=== PATIENT | female | born 1985 | race Caucasian/White ===

== ENCOUNTER 2016-09-19 22:56 | Emergency (ER) | payer MEDICAID ==
[~2016-09-19] VITALS: Ht 160 cm; Wt 72.2 kg
[~2016-09-19 22:56] MED LIST: CEPH-443 PO; HYDR-3498 PO; IBUP-1542 PO; NITR-58 PO
[2016-09-19 23:04] VITALS: Ht 160 cm; Wt 72.2 kg
--- NOTE | 2016-09-20 01:29 | ERD ---
ER Documentation Chief Complaint Date/Time DATE: 09/20/16 TIME: 01:25 Chief Complaint VAGINAL BUMPS NOTED IN THE PERINEAL AREA HPI 31-year-old female presents here in emergency department for complaints of bumps in the perineal area that she noticed tonight. Patient denies any pain. Patient denies dysuria. Patient denies any abdominal pain. Patient is approximately 28 weeks , 7 months . Patient denies any vaginal bleeding, denies any discharge from the vaginal area. Patient denies any fever or chills. Patient denies any nausea or vomiting. Patient denies any fever or chills. ROS All systems reviewed and are negative except as per history of present illness. Medications Home Meds Active Scripts Nitrofurantoin Monohyd Macrocr* (Macrobid*) 100 Mg Capsr, 100 MG PO BID for 7 Days, CAP Prov:ANTONINO NEVAREZ PA-C 04/20/16 Ibuprofen* (Motrin*) 600 Mg Tab, 600 MG PO Q6, #30 TAB Prov:ANTONINO NEVAREZ PA-C 10/30/15 Hydrocodone Bit-Acetaminophen* ([place]*) 5-325 Mg Tab, 1 TAB PO Q6 Y for PAIN, # 7 TAB Prov:ANTONINO NEVAREZ PA-C 10/30/15 Cephalexin* (Keflex*) 500 Mg Capsule, 500 MG PO QID for 7 Days, CAP Prov:ANTONINO NEVAREZ PA-C 10/30/15 Allergies Allergies: Coded Allergies: No Known Allergy (Unverified , 09/19/16) PMhx/Soc Medical and Surgical Hx: pt denies Medical Hx, pt denies Surgical Hx History of Surgery: No Anesthesia Reaction: No Hx Neurological Disorder: No Hx Respiratory Disorders: No Hx Cardiac Disorders: No Hx Psychiatric Problems: No Hx Miscellaneous Medical Probl: No Hx Alcohol Use: No Hx Substance Use: No Hx Tobacco Use: No Smoking Status: Never smoker FmHx Family History: No coronary disease, No diabetes, No other Physical Exam Vitals Vital Signs Date Time Temp Pulse Resp B/P Pulse Ox O2 Delivery O2 Flow Rate FiO2 09/19/16 23:04 97.0 80 20 113/73 97 Physical Exam GENERAL: The patient is well developed and appropriate for usual state of health, in no apparent distress. CHEST: Clear to auscultation bilaterally. There are no rales, wheezes or rhonchi. HEART: Regular rate and rhythm. No murmurs, clicks, rubs or gallops. No S3 or S4. ABDOMEN: Soft, nontender and nondistended. Good bowel sounds. No rebound or guarding. No gross peritonitis. No gross organomegaly or masses. No Bernal sign or McBurney point tenderness. BACK: No midline or flank tenderness. EXTREMITIES: Equal pulses bilaterally. There is no peripheral clubbing, cyanosis or edema. No focal swelling or erythema. Full range of motion. Grossly neurovascularly intact. NEURO: Alert and oriented. Cranial nerves 2-12 intact. Motor strength in all 4 extremities with 5/5 strength. Sensation grossly intact. Normal speech and gait. SKIN: There is no apparent rash or petechia. The skin is warm and dry. HEMATOLOGIC AND LYMPHATIC: There is no evidence of excessive bruising or lymphedema. No gross cervical, axillary, or inguinal lymphadenopathy. : Noted perineal varices, no blisters noted, no open wounds noted, no pustules , no discharge noted. No swelling noted. No abscesses noted. Procedures/MDM Medical decision making: Patient's symptoms was likely consistent with genital varices in , most likely from pressure of the growing . Patient is currently already in the third trimester. No symptoms of any labor pains. Patient does not have any abdominal pain, flank pain, vaginal bleeding, vaginal discharge. Patient was advised to see labor and delivery if she has the symptoms. Patient was reassured. Patient was advised to return to emergency department for any worsening symptoms, bleeding varices, high fever, or any other worsening symptoms. Otherwise, patient is advised to see labor and delivery for any labor pains symptoms. Follow up with primary care doctor in 2- 3 days for reevaluation of symptoms. Departure Diagnosis: Primary Impression: Genital varices in , third trimester Condition: Stable Patient Instructions: Varicose Veins ALEXANDRIA FARLEY NP September 20, 2016 01:29
== END 2016-09-20 04:03 | disposition home or self-care (01) ==
LOC: FTE 22:56
DX: O22.13 Genital varices in pregnancy, third trimester (principal); N90.89 Other specified noninflammatory disorders of vulva and perineum; Z3A.28 28 weeks gestation of pregnancy
CPT/HCPCS: 99282

== ENCOUNTER 2016-11-26 09:04 | Inpatient (IN) | payer MEDICAID ==
[~2016-11-26] VITALS: Ht 162.6 cm; Wt 75.0 kg
[2016-12-03] MEDS ORDERED: LACTATED RINGER'S 1,000 ML IV SCH (09:50)
[2016-12-03 09:55] VITALS: Ht 162.6 cm; Wt 75.0 kg
[2016-12-03] MEDS ORDERED: METHYLERGONOVINE 0.2 MG INJ IM PRN (10:00)
[2016-12-03] MEDS ORDERED: LIDOCAINE 1% (MPF) 30 ML INJ INJ PRN (10:00)
[2016-12-03] MEDS ORDERED: BUTORPHANOL 2 MG INJ IV PRN (10:00)
[2016-12-03] MEDS ORDERED: IBUPROFEN 600 MG TAB PO PRN (10:00)
[2016-12-03] MEDS ORDERED: CARBOPROST 250 MCG INJ IM PRN (10:00)
[2016-12-03] MEDS ORDERED: OXYTOCIN 30 UNITS/LR 500 ML IV PRN (10:00)
[2016-12-03] MEDS ORDERED: LACTATED RINGER'S 1,000 ML IV PRN (10:00)
[2016-12-03] MEDS ORDERED: OXYTOCIN 30 UNITS/LR 500 ML IV SCH ×3 (10:00→11:00)
[2016-12-03] MEDS ORDERED: MISOPROSTOL 200 MCG TAB PR PRN (10:00)
[2016-12-03 10:31] LABS: BASOPHILS % 0.2 % (0.0-2.0); EOSINOPHILS # 0.1 10^3/ul (0.0-0.5); HEMATOCRIT 35.7 % (37.0-47.0); HEMOGLOBIN 12.1 g/dl (12.0-16.0); LYMPHOCYTES # 1.8 10^3/ul (0.8-2.9); LYMPHOCYTES % 31.8 % (15.0-51.0); MEAN CORPUSCULAR HEMOGLOBIN 28.9 pg (29.0-33.0); MEAN CORPUSCULAR HGB CONC 33.9 g/dl (32.0-37.0); MEAN CORPUSCULAR VOLUME 85.4 fl (82.0-101.0); MEAN PLATELET VOLUME 11.3 fl (7.4-10.4); MONOCYTE # 0.3 10^3/ul (0.3-0.9); MONOCYTES % 5.9 % (0.0-11.0); NEUTROPHIL # 3.5 10^3/ul (1.6-7.5); NEUTROPHILS % 60.4 % (39.0-77.0); PLATELET COUNT 191 10^3/UL (140-415); RED BLOOD COUNT 4.18 10^6/ul (4.20-5.40); RED CELL DISTRIBUTION WIDTH 15.2 % (11.5-14.5); WHITE BLOOD COUNT 5.8 10^3/ul (4.8-10.8)
[2016-12-03 10:46] LABS: INR 0.94; PROTIME 12.6 Sec (12.2-14.2)
[2016-12-03] MEDS ORDERED: FENTAnyl 2MCG/ML-ROPIV 0.2% 100 ML ONE (11:43)
[2016-12-03] MEDS ORDERED: NALOXONE (0.4 MG/ML) INJ IV PRN (12:00)
[2016-12-03] MEDS ORDERED: FENTAnyl 2MCG/ML-ROPIV 0.2% 100 ML BAG EPI SCH (12:00)
--- NOTE | 2016-12-03 15:13 | HP ---
Date/Time of Note Date/Time of Note DATE: 12/03/16 TIME: 15:06 OB - History Hx of Present Free Text/Dictation 31 years old female 3 para 2 EDC November 26, 2069 admitted to [facility] for induction of labor . 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 Rubella: immune RPR/VDRL: Negative GBS Status: Negative HBsAG: Negative OB Admission Exam Physical Exam HEENT: WNL Heart: Rhythm Normal Lungs: Clear, Equal Abdomen: WNL Extremities: Normal Reflexes: Normal Cervical Dilatation: 3cm Effacement: 75% Station: -1 Membranes: Intact Heart Rate: 130's Accelerations: Accelerations Present Decelerations: Variable Decelerations Varibility: Moderate Contractions on Admission: >10 Minutes Apart Intensity: Mild Last 72 hours Lab Results CBC & BMP 12/03/16 10:10 CLEMENT NGUYEN MD Dec 03, 2016 15:13
--- NOTE | 2016-12-03 15:16 | LDN ---
Date/Time of Note Date/Time of Note DATE: 12/03/16 TIME: 15:14 Delivery Summary Normal spontaneous vaginal delivery of a baby girl from OA position cord clamped after stopped pulsation placenta spontaneous expulsion inspected complete blood loss 200 cc perineal vaginal exam no laceration Weeks of Gestation 41 week Placenta Delivered: Spontaneously Meconium: none Episiotomy: No Anesthesia type: Epidural Estimated blood loss: 200 Sponge & Needle done & correct: Yes All needle counts correct: Yes Any foreign bodies felt in the: No Problems: Infant Delivery Information Apgars 1 Minute: 9 5 Minute: 9 Suctioning Delee suction performed: No Umbilical Cord Umbilical cord with: 3 Vessels Cord presentations: no nuchal cord Cord Blood was obtained: Yes CLEMENT NGUYEN MD Dec 03, 2016 15:16
[2016-12-03 16:30] VITALS: BP 110/68; PULSE 62; RESP 20
[2016-12-03] MEDS ORDERED: ACETAMINOPHEN 325 MG TAB PO PRN (16:30)
[2016-12-03] MEDS ORDERED: WITCH HAZEL/GLYCERIN PAD PR PRN (16:30)
[2016-12-03] MEDS ORDERED: OXYCODONE/ASPIRIN (4.88/325) TAB PO PRN ×2 (16:30)
[2016-12-03] MEDS ORDERED: DIBUCAINE 1% 30 GM OINT PR PRN (16:30)
[2016-12-03] MEDS ORDERED: BENZOCAINE 20% 56 ML SPRAY TOP PRN (16:30)
[2016-12-03] MEDS ORDERED: LANOLIN 7 GM TUBE TOP PRN (16:30)
[2016-12-03] MEDS ORDERED: ONDANSETRON 4 MG INJ IV PRN (16:30)
[2016-12-03] MEDS ORDERED: HYDROCODONE/APAP (5/325) TAB PO PRN ×2 (16:30)
[2016-12-03] MEDS: OXYTOCIN 30 UNITS/LR 500 ML IV SCH ×2 (16:37→19:34)
[2016-12-03] MEDS: IBUPROFEN 600 MG TAB PO SCH ×2 (17:45→23:56)
[2016-12-03 19:30] VITALS: BP 104/69; PULSE 79; RESP 18
[2016-12-03] MEDS: SENNA/DOCUSATE NA (8.6MG/50MG) TAB PO SCH (20:38)
[2016-12-04] VITALS: BP 108/71; PULSE 77; RESP 18
[2016-12-04 04:15] VITALS: BP 103/58; PULSE 73; RESP 19
[2016-12-04] MEDS: IBUPROFEN 600 MG TAB PO SCH ×4 (05:49→23:45)
[2016-12-04 08:00] VITALS: BP 88/51; PULSE 66; RESP 16
--- NOTE | 2016-12-04 08:44 | PN ---
Date/Time of Note Date/Time of Note DATE: 12/04/16 TIME: 08:43 OB Subjective Subjective Subjective Post normal vaginal delivery day 1 Afebrile Vital signs are stable Abdomen soft Uterus firm Lochia normal Extremity normal Ambulation encouraged Laboratory Tests Test 12/03/16 10:10 White Blood Count 5.810^3/ul Red Blood Count 4.1810^6/ul Hemoglobin 12.1g/dl Hematocrit 35.7% Mean Corpuscular Volume 85.4fl Mean Corpuscular Hemoglobin 28.9pg Mean Corpuscular Hemoglobin Concent 33.9g/dl Red Cell Distribution Width 15.2% Platelet Count 25407^3/UL Mean Platelet Volume 11.3fl Neutrophils % 60.4% Lymphocytes % 31.8% Monocytes % 5.9% Eosinophils % 1.0% Basophils % 0.2% Nucleated Red Blood Cells % 0.0/100WBC Neutrophils # 3.510^3/ul Lymphocytes # 1.810^3/ul Monocytes # 0.310^3/ul Eosinophils # 0.110^3/ul Basophils # 0.010^3/ul Nucleated Red Blood Cells # 0.010^3/ul Prothrombin Time 12.6Sec Prothrombin Time Ratio 1.0 INR International Normalized Ratio 0.94 Activated Partial Thromboplast Time 30.0Sec Rapid Plasma Reagin NONREACTIVE Current Medications Medications (Trade) Dose Ordered Sig/Redd Route PRN Reason Start Time Stop Time Status Last Admin Dose Admin Lactated Ringer's (Lr) 1,000 ml @ 125 mls/hr Q8H IV 12/03/16 09:50 12/03/16 16:14 DC 12/03/16 10:12 Butorphanol Tartrate (Stadol) 2 mg Q2H PRN IV PAIN 12/03/16 10:00 12/03/16 16:15 DC Lidocaine 30 ml 30 ml ONCE PRN INJ EPISIOTOMY/TEARING 12/03/16 10:00 12/03/16 16:15 DC Oxytocin/Lactated Ringer's 500 ml @ 125 mls/hr ONCE -MAY REPEAT X1 IV 12/03/16 10:00 12/03/16 16:15 DC Oxytocin/Lactated Ringer's 500 ml @ 125 mls/hr ONCE IV 12/03/16 10:00 12/03/16 16:15 DC 12/03/16 15:13 Ibuprofen 600 mg 600 mg ONCE PRN PO Mild Pain (Pain Score 1-3) 12/03/16 10:00 12/03/16 16:15 DC Lactated Ringer's 1,000 ml @ 2,000 mls/hr Q30M PRN IV PRE-EPIDURAL BOLUS 12/03/16 10:00 12/03/16 16:15 DC 12/03/16 11:14 Oxytocin/Lactated Ringer's 500 ml @ 0 mls/hr ONCE PRN IV For Hemorrhage Management 12/03/16 10:00 12/03/16 16:15 DC Methylergonovine Maleate (Methergine) 0.2 mg ONCE PRN IM VAGINAL BLEEDING 12/03/16 10:00 12/03/16 16:16 DC Carboprost Tromethamine (Hemabate) 250 mcg ONCE PRN IM VAGINAL BLEEDING 12/03/16 10:00 12/03/16 16:16 DC Misoprostol 1000 mcg 1,000 mcg ONCE PRN MT VAGINAL BLEEDING 12/03/16 10:00 12/03/16 16:16 DC Oxytocin/Lactated Ringer's 500 ml @ 0 mls/hr Q0M IV 12/03/16 11:00 12/03/16 16:14 DC 12/03/16 12:05 Fentanyl/ Ropivacaine 100 ml @ ud STK-MED ONCE .ROUTE 12/03/16 11:43 12/03/16 11:44 DC Naloxone HCl (Narcan) 0.2 mg Q2M PRN IV FOR RESP RATE 8 OR LESS 12/03/16 12:00 12/03/16 16:14 DC Fentanyl/ Ropivacaine 100 ml 100 ml EPIDURAL (PCEA) EPI 12/03/16 12:00 12/03/16 16:14 DC Oxytocin/Lactated Ringer's 500 ml @ 125 mls/hr Q4H IV 12/03/16 16:10 12/04/16 00:09 DC 12/03/16 19:34 Ibuprofen (Motrin) 600 mg Q6 PO 12/03/16 18:00 12/04/16 05:49 Acetaminophen (Tylenol Tab) 650 mg Q4H PRN PO PAIN LEVEL 1-5 12/03/16 16:30 Acetaminophen/ Hydrocodone Bitart ([place] (5/325)) 1 tab Q4H PRN PO PAIN LEVEL 1-5 12/03/16 16:30 12/03/16 20:38 Acetaminophen/ Hydrocodone Bitart ([place] (5/325)) 2 tab Q4H PRN PO PAIN LEVEL 6-10 12/03/16 16:30 Oxycodone/Aspirin (Percodan) 1 tab Q3H PRN PO PAIN LEVEL 1-5 12/03/16 16:30 Oxycodone/Aspirin (Percodan) 2 tab Q3H PRN PO PAIN LEVEL 6-10 12/03/16 16:30 Ondansetron HCl (Zofran Inj) 4 mg Q6H PRN IV NAUSEA AND/OR VOMITING 12/03/16 16:30 Senna/Docusate Sodium (Senokot-S) 1 tab BID PO 12/03/16 21:00 12/03/16 20:38 Witch Pooja/ Glycerin (Tucks Pads) 1 pad BEDSIDE MEDICATION PRN MT HEMORRHOID/EPISIOTMY PAIN 12/03/16 16:30 12/03/16 20:39 Benzocaine (Dermoplast [place]) 1 spray BEDSIDE MEDICATION PRN TOP HEMORRHOID/EPISIOTMY PAIN 12/03/16 16:30 12/03/16 20:39 Dibucaine (Nupercainal) 1 applic BEDSIDE MEDICATION PRN MT HEMORRHOID/EPISIOTMY PAIN 12/03/16 16:30 Lanolin (Dbj-A-Iskrsz) 1 applic BEDSIDE MEDICATION PRN TOP BEDSIDE FOR GINGER TO NIPPLES 12/03/16 16:30 12/03/16 20:39 Measles/Mumps/ Rubella Vaccine Live (Mmr Ii Vaccine) 0.5 ml ONCE ONCE SC* 12/05/16 09:00 12/05/16 09:01 CLEMENT NGUYEN MD Dec 04, 2016 08:44
[2016-12-04] MEDS: SENNA/DOCUSATE NA (8.6MG/50MG) TAB PO SCH ×2 (09:12→20:49)
[2016-12-04 10:45] LABS: BASOPHILS % 0.1 % (0.0-2.0); EOSINOPHILS # 0.1 10^3/ul (0.0-0.5); EOSINOPHILS % 1.7 % (0.0-7.0); HEMATOCRIT 33.2 % (37.0-47.0); HEMOGLOBIN 11.4 g/dl (12.0-16.0); LYMPHOCYTES # 2.4 10^3/ul (0.8-2.9); MEAN CORPUSCULAR HEMOGLOBIN 29.3 pg (29.0-33.0); MEAN CORPUSCULAR HGB CONC 34.3 g/dl (32.0-37.0); MEAN CORPUSCULAR VOLUME 85.3 fl (82.0-101.0); MEAN PLATELET VOLUME 11.9 fl (7.4-10.4); MONOCYTE # 0.4 10^3/ul (0.3-0.9); MONOCYTES % 5.1 % (0.0-11.0); NEUTROPHILS % 62.7 % (39.0-77.0); PLATELET COUNT 186 10^3/UL (140-415); RED BLOOD COUNT 3.89 10^6/ul (4.20-5.40); RED CELL DISTRIBUTION WIDTH 14.8 % (11.5-14.5)
[2016-12-04 16:00] VITALS: BP 104/69; PULSE 73; RESP 16
[2016-12-04 20:45] VITALS: BP 109/70; PULSE 68; RESP 18
[2016-12-05 04:25] VITALS: BP 102/58; PULSE 70; RESP 18
[2016-12-05] MEDS: IBUPROFEN 600 MG TAB PO SCH ×3 (05:35→17:21)
[2016-12-05 07:40] VITALS: BP 99/70; PULSE 67; RESP 16
[2016-12-05] MEDS: SENNA/DOCUSATE NA (8.6MG/50MG) TAB PO SCH (08:42)
--- NOTE | 2016-12-05 08:45 | PD.PPDC ---
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
--- NOTE | 2016-12-05 08:48 | DS ---
Date/Time of Note Date/Time of Note DATE: 12/05/16 TIME: 08:46 Discharge Summary Admission/Discharge Info Admit Date/Time Dec 03, 2016 at 09:05 Discharge Date/Time December 05, 2016 at 0 840 Discharge Diagnosis Post normal vaginal delivery day 2 Patient Condition: Good Procedures Normal vaginal delivery Hx of Present Illness Term admitted in labor Hospital Course Satisfactory recovery uneventful Home Meds Active Scripts Nitrofurantoin Monohyd Macrocr* (Macrobid*) 100 Mg Capsr, 100 MG PO BID for 7 Days, CAP Prov:ANTONINO NEVAREZ PA-C 04/20/16 Ibuprofen* (Motrin*) 600 Mg Tab, 600 MG PO Q6, #30 TAB Prov:ANTONINO NEVAREZ PA-C 10/30/15 Hydrocodone Bit-Acetaminophen* ([place]*) 5-325 Mg Tab, 1 TAB PO Q6 Y for PAIN, # 7 TAB Prov:ANTONINO NEVAREZ PA-C 10/30/15 Cephalexin* (Keflex*) 500 Mg Capsule, 500 MG PO QID for 7 Days, CAP Prov:ANTONINO NEVAREZ PA-C 10/30/15 Follow-up Plan instructions given recommended to make appointment to be seen at the clinic in 2 weeks Primary Care Provider Care Physician No Primary Time spent on discharge: < 30 minutes Pending Labs Laboratory Tests Test 12/04/16 09:21 White Blood Count 8.010^3/ul (4.8-10.8) Red Blood Count 3.8910^6/ul (4.20-5.40) Hemoglobin 11.4g/dl (12.0-16.0) Hematocrit 33.2% (37.0-47.0) Mean Corpuscular Volume 85.3fl (82.0-101.0) Mean Corpuscular Hemoglobin 29.3pg (29.0-33.0) Mean Corpuscular Hemoglobin Concent 34.3g/dl (32.0-37.0) Red Cell Distribution Width 14.8% (11.5-14.5) Platelet Count 52228^3/UL (140-415) Mean Platelet Volume 11.9fl (7.4-10.4) Neutrophils % 62.7% (39.0-77.0) Lymphocytes % 30.0% (15.0-51.0) Monocytes % 5.1% (0.0-11.0) Eosinophils % 1.7% (0.0-7.0) Basophils % 0.1% (0.0-2.0) Nucleated Red Blood Cells % 0.0/100WBC (0.0-0.0) Neutrophils # 5.010^3/ul (1.6-7.5) Lymphocytes # 2.410^3/ul (0.8-2.9) Monocytes # 0.410^3/ul (0.3-0.9) Eosinophils # 0.110^3/ul (0.0-0.5) Basophils # 0.010^3/ul (0.0-0.1) Nucleated Red Blood Cells # 0.010^3/ul (0.0-0.0) CLEMENT NGUYEN MD Dec 05, 2016 08:48
[2016-12-05] MEDS ORDERED: MEASLES,MUMPS,RUBELLA VACCINE INJ SC* ONE (09:00)
[2016-12-05 16:00] VITALS: BP 117/88; PULSE 67; RESP 16
== END 2016-12-05 18:30 | disposition home or self-care (01) | DRG 775 ==
LOC: EDSTATUS 09:04 → L-D 12-03 09:05 → PP1 12-03 16:15
PROVIDERS: ADMIT Obstetrics & Gynecology; ATTEND Obstetrics & Gynecology
PROC: 10E0XZZ Delivery of Products of Conception, External Approach (ICD-10-PCS; principal; 2016-12-03)
DX: O48.0 Post-term pregnancy (principal); O76 Abnormality in fetal heart rate and rhythm complicating labor and delivery; Z37.0 Single live birth; Z3A.41 41 weeks gestation of pregnancy
CPT/HCPCS: 62319; 85025; 85610; 85730; 86592; 86900; 86901; 99464; J2590; J3010; J7120

== ENCOUNTER 2017-01-07 23:09 | Emergency (ER) | payer MEDICAID ==
[~2017-01-07] VITALS: Ht 154.9 cm; Wt 69.0 kg
[2017-01-07 23:12] VITALS: Ht 154.9 cm; Wt 69.0 kg
[2017-01-08] MEDS ORDERED: KETOROLAC 60 MG INJ IM STA (02:09)
[2017-01-08] MEDS ORDERED: CEPH-443 PO (02:16)
[2017-01-08] MEDS ORDERED: IBUP-1542 PO (02:16)
--- NOTE | 2017-01-08 02:20 | ERD ---
ER Documentation Chief Complaint Date/Time DATE: 01/08/17 TIME: 02:17 Chief Complaint R breast pain right side of the body pain since last night HPI 31-year-old female presents to emergency department for complaints of right breast pain radiating to the right arm and right side of the body that started last night. Patient describes the pain as sharp pain, 8/10 scale, not better or worse with anything. Patient felt feverish and chills at home, denies checking temperature. Patient did not take any medications to help with symptoms. Currently breast-feeds. ROS All systems reviewed and are negative except as per history of present illness. 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 ENGINEER 01/08/17 Ibuprofen* (Motrin*) 600 Mg Tab, 600 MG PO Q6H Y for PAIN AND OR ELEVATED TEMP, #30 TAB Prov:ALEXANDRIA FARLEY NP 01/08/17 Allergies Allergies: Coded Allergies: No Known Allergy (Unverified , 09/19/16) PMhx/Soc Medical and Surgical Hx: pt denies Medical Hx, pt denies Surgical Hx History of Surgery: No Anesthesia Reaction: No Hx Neurological Disorder: No Hx Respiratory Disorders: No Hx Cardiac Disorders: No Hx Psychiatric Problems: No Hx Miscellaneous Medical Probl: No Hx Alcohol Use: No Hx Substance Use: No Hx Tobacco Use: No Smoking Status: Never smoker FmHx Family History: No coronary disease, No diabetes, No other Physical Exam Vitals Vital Signs Date Time Temp Pulse Resp B/P Pulse Ox O2 Delivery O2 Flow Rate FiO2 01/07/17 23:12 97.5 75 16 127/80 98 Physical Exam GENERAL: The patient is well developed and appropriate for usual state of health, in no apparent distress. CHEST: Clear to auscultation bilaterally. There are no rales, wheezes or rhonchi. Noted tenderness on palpation on the lower quadrants of the right breast area with erythema noted, no fluctuance noted. No deep will discharge. Left breast is normal. HEART: Regular rate and rhythm. No murmurs, clicks, rubs or gallops. No S3 or S4. ABDOMEN: Soft, nontender and nondistended. Good bowel sounds. No rebound or guarding. No gross peritonitis. No gross organomegaly or masses. No Bernal sign or McBurney point tenderness. BACK: No midline or flank tenderness. EXTREMITIES: Equal pulses bilaterally. There is no peripheral clubbing, cyanosis or edema. No focal swelling or erythema. Full range of motion. Grossly neurovascularly intact. NEURO: Alert and oriented. Cranial nerves 2-12 intact. Motor strength in all 4 extremities with 5/5 strength. Sensation grossly intact. Normal speech and gait. SKIN: There is no apparent rash or petechia. The skin is warm and dry. HEMATOLOGIC AND LYMPHATIC: There is no evidence of excessive bruising or lymphedema. No gross cervical, axillary, or inguinal lymphadenopathy. Results 24 hrs Current Medications Medications (Trade) Dose Ordered Sig/Redd Route PRN Reason Start Time Stop Time Status Last Admin Dose Admin Ketorolac Tromethamine (Toradol) 60 mg ONCE STAT IM 01/08/17 02:09 01/08/17 02:10 DC Patient was given medication for pain here in emergency department, after treatment, patient verbalized feeling much better. Patient's pain is improved. Procedures/MDM Medical decision making: Patient's symptoms are secondary to right breast mastitis. No symptoms of any sepsis, no symptoms of any abscess. Patient appears well and is hemodynamically stable. Fever is controlled. Prescription was given for Keflex, and appropriate, is advised to apply warm compress on affected area, follow-up with primary care doctor reevaluate patient is advised to return to emergency department for any worsening symptoms. Disposition: Home. Stable. Departure Diagnosis: Primary Impression: Mastitis Condition: Stable Patient Instructions: ALEXANDRIA Zafar NP Jan 08, 2017 02:20
[2017-01-08 04:37] VITALS: BP 136/85; PULSE 70; RESP 16; TEMP 98.6
== END 2017-01-08 04:39 | disposition home or self-care (01) ==
LOC: FTE 23:09
DX: N61.0 Mastitis without abscess (principal)
CPT/HCPCS: 96372; J1885; Z7502